=== PATIENT | male | born 1990 | race Caucasian/White ===

== ENCOUNTER 2017-06-20 23:05 | Emergency (ER) | payer MEDICAID ==
[~2017-06-20] VITALS: Ht 170.2 cm; Wt 81.2 kg
[2017-06-20 23:20] VITALS: BP_SYST 141
--- NOTE | 2017-06-20 23:20 | NUR ---
Patient AAO x4, placed in waiting room, VSS. MD aware of patient condition, will continue to monitor.
--- NOTE | 2017-06-21 00:56 | NUR ---
Patient to [facility] for evaluation. Report given to Zora GODWIN.
--- NOTE | 2017-06-21 01:02 | NUR ---
Note lori in [facility] - 06/21/17 at 0114 by NABIL Patient to [facility] for evaluation. Report given to Zora LEONE
--- NOTE | 2017-06-21 01:02 | NUR ---
Patient to ER C/O spider bite on left posterior forearm. 1cm radius of open wound draining pus and 10 cm diameter of reddness surrounding the open wound. C/O moderate itchiness. No signs of acute distress.
--- NOTE | 2017-06-21 01:48 | NUR ---
ER MD Mcadams at bedside evaluating the patient
[2017-06-21] MEDS ORDERED: cefTRIAXone 1 GM in LIDOCAINE 1%, 20 ML MDV 2.1 ML IM ONE (03:15)
[2017-06-21] MEDS ORDERED: DIPHENHYDRAMINE HCL 25 MG CAPSULE PO ONE (03:15)
[2017-06-21] MEDS ORDERED: IBUPROFEN 400 MG TABLET PO ONE (03:15)
--- NOTE | 2017-06-21 03:55 | NUR ---
Patient reports pain 0/10. 30 minutes after administration of motrin, Benadryl, rocephin. No adverse reactions noted. Will continue to monitor.
[2017-06-21 03:58] VITALS: BP_SYST 127
--- NOTE | 2017-06-21 03:58 | NUR ---
Patient given written and verbal discharge instructions and verbalizes understanding. ER MD Mcadams discussed with patient the results and treatment provided. Patient in stable condition. ID arm band removed. Rx of keflex & bactrim given. Patient educated on pain management and to follow up with PMD. Pain Scale 0/10. Opportunity for questions provided and answered.
== END 2017-06-21 03:58 | disposition home or self-care (01) ==
LOC: SED 23:05
DX: S50.862A Insect bite (nonvenomous) of left forearm, initial encounter (principal); L03.114 Cellulitis of left upper limb; W57.XXXA Bitten or stung by nonvenomous insect and other nonvenomous arthropods, initial encounter; Y93.89 Activity, other specified; Y92.89 Other specified places as the place of occurrence of the external cause; Y99.8 Other external cause status
CPT/HCPCS: 96372; 99283; J0696; J2001; Q0163